=== PATIENT | female | born 1990 | race Two or more races ===

== ENCOUNTER 2016-11-29 06:15 | Inpatient (IN) | payer BC ==
[~2016-11-29] VITALS: Ht 152.4 cm; Wt 81.8 kg
[~2016-11-29 06:15] MED LIST: ACET325T14 PO; DOCU100T3 PO; IBUP-1222 PO; OXYC-302 PO; PREN1TAB27 PO
[2016-11-29] MEDS: LACTATED RINGERS 1,000 ML IV SCH ×3 (06:42→13:23)
[2016-11-29] MEDS ORDERED: OXYTOCIN 30U/ 0.9% NaCL 500ML 500 ML IV ONE (06:50)
[2016-11-29] MEDS: D5%-LACTATED RINGERS 1,000 ML IV SCH ×2 (06:50→14:50)
[2016-11-29] MEDS ORDERED: FENTANYL PF 100 MCG/2ML IVPush PRN (07:00)
[2016-11-29] MEDS ORDERED: ONDANSETRON 2MG/ML, 2ML IVPush PRN (07:00)
[2016-11-29] MEDS ORDERED: FENTANYL PF 100 MCG/2ML IV PRN (07:00)
[2016-11-29] MEDS ORDERED: TERBUTALINE 1 MG/ML, 1ML IVPush PRN ×2 (07:00)
[2016-11-29] MEDS ORDERED: CALCIUM CARBONATE 500 MG TAB.CHEW PO PRN ×2 (07:00→16:30)
[2016-11-29] MEDS ORDERED: TERBUTALINE 1 MG/ML, 1ML SQ PRN (07:00)
[2016-11-29 07:01] VITALS: BP 131/76
[2016-11-29] MEDS ORDERED: MISOPROSTOL 25 MCG TABLET ONE ×2 (07:01→11:37)
[2016-11-29] MEDS ORDERED: NEWBORN KIT ONE (07:02)
[2016-11-29] MEDS ORDERED: OXYTOCIN 30U/ 0.9% NaCL 500ML 500 ML ONE (07:02)
[2016-11-29 07:17] VITALS: BP 131/76
[2016-11-29] MEDS: MISOPROSTOL 25 MCG TABLET VG PRN ×2 (07:37→12:00)
[2016-11-29] MEDS ORDERED: MISOPROSTOL 200 MCG TABLET ONE (08:48)
[2016-11-29] MEDS ORDERED: LIDOCAINE 1%, 20ML ONE (08:48)
[2016-11-29] MEDS ORDERED: FENTANYL/BUPIV./NS/PF 250 ML EPIDCONT ONE (14:05)
[2016-11-29] MEDS ORDERED: BUPIVACAINE/PF 0.25% ONE (14:06)
[2016-11-29] MEDS ORDERED: FENTANYL/BUPIV./NS/PF 250 ML EPIDCONT SCH (14:47)
[2016-11-29] MEDS ORDERED: LACTATED RINGERS 1,000 ML IV SCH (14:47)
[2016-11-29] MEDS ORDERED: NALOXONE 0.4 MG/ML, 1ML IVPush PRN (15:00)
[2016-11-29] MEDS ORDERED: EPHEDRINE 50 MG/ML, 1ML IVPush PRN (15:00)
[2016-11-29] MEDS ORDERED: LACTATED RINGERS 1,000 ML IVBOLUS PRN (15:00)
[2016-11-29] MEDS: OXYTOCIN 30U/ 0.9% NaCL 500ML 500 ML IV SCH (16:03)
[2016-11-29] MEDS ORDERED: MISOPROSTOL 200 MCG TABLET PR PRN (16:30)
[2016-11-29] MEDS ORDERED: HYDROcodone/APAP 5/325 TABLET PO PRN (16:30)
[2016-11-29] MEDS ORDERED: ONDANSETRON 2MG/ML, 2ML IV PRN (16:30)
[2016-11-29 18:40] VITALS: BP 125/71
[2016-11-29] MEDS: IBUPROFEN 600 MG TABLET PO PRN (19:27)
[2016-11-29] MEDS: HYDROcodone/APAP 5/325 TABLET PO PRN (21:27)
[2016-11-30 01:17] VITALS: BP 123/78
[2016-11-30] MEDS: HYDROcodone/APAP 5/325 TABLET PO PRN ×4 (01:31→19:15)
[2016-11-30] MEDS: IBUPROFEN 600 MG TABLET PO PRN ×4 (01:31→20:44)
[2016-11-30] MEDS: OXYTOCIN 30U/ 0.9% NaCL 500ML 500 ML IV SCH ×2 (02:03→03:20)
[2016-11-30 04:29] VITALS: BP 117/72
[2016-11-30 07:25] VITALS: BP 135/79
[2016-11-30] MEDS: PRENATAL VIT/IRON/FA 1 EACH TABLET PO SCH (07:47)
[2016-11-30] MEDS: DOCUSATE 100 MG CAPSULE PO PRN ×2 (07:47→20:44)
[2016-11-30 20:30] VITALS: BP 127/71
[2016-12-01 07:20] VITALS: BP 115/73
[2016-12-01] MEDS: PRENATAL VIT/IRON/FA 1 EACH TABLET PO SCH (08:00)
[2016-12-01] MEDS: IBUPROFEN 600 MG TABLET PO PRN ×2 (08:00→13:44)
[2016-12-01] MEDS: DOCUSATE 100 MG CAPSULE PO PRN (08:00)
[2016-12-01] MEDS ORDERED: PRENATAL VIT/IRON/FA 1 EACH TABLET PO SCH (09:00)
[2016-12-01] MEDS ORDERED: IBUP800T PO (12:12)
[2016-12-01] MEDS ORDERED: HYDR-3240 PO (12:13)
[2016-12-01] MEDS: HYDROcodone/APAP 5/325 TABLET PO PRN (13:44)
== END 2016-12-01 14:17 | disposition home or self-care (01) | DRG 775 ==
LOC: LDIP 06:15 → 2NW 18:23
PROVIDERS: ADMIT Obstetrics & Gynecology; ATTEND Obstetrics & Gynecology
PROC: 10E0XZZ Delivery of Products of Conception, External Approach (ICD-10-PCS; principal; 2016-11-29)
PROC: 10907ZC Drainage of Amniotic Fluid, Therapeutic from Products of Conception, Via Natural or Artificial Opening (ICD-10-PCS; 2016-11-29)
PROC: 00HU33Z Insertion of Infusion Device into Spinal Canal, Percutaneous Approach (ICD-10-PCS; 2016-11-29)
PROC: 3E0R3CZ (ICD-10-PCS; 2016-11-29)
PROC: 3E0P7GC Introduction of Other Therapeutic Substance into Female Reproductive, Via Natural or Artificial Opening (ICD-10-PCS; 2016-11-29)
DX: O36.5930 Maternal care for other known or suspected poor fetal growth, third trimester, not applicable or unspecified (principal); O41.03X0 Oligohydramnios, third trimester, not applicable or unspecified; Z37.0 Single live birth; Z3A.39 39 weeks gestation of pregnancy
CPT/HCPCS: 36415; 85025; 86850; 86900; J2590; J3010; J7120

== ENCOUNTER 2018-11-20 12:46 | Inpatient (IN) | payer BC ==
[~2018-11-20] VITALS: Ht 152.4 cm; Wt 85.5 kg
[~2018-11-20 12:46] MED LIST changes: +HYDR-3240 PO; +IBUP-1223 PO
[2018-11-20] MEDS ORDERED: NEWBORN KIT ONE (13:10)
[2018-11-20] MEDS ORDERED: OXYTOCIN 30U/ 0.9% NaCL 500ML 500 ML ONE ×2 (13:10→18:17)
[2018-11-20] MEDS ORDERED: D5%-LACTATED RINGERS 1,000 ML IV SCH (13:16)
[2018-11-20] MEDS ORDERED: OXYTOCIN 30U/ 0.9% NaCL 500ML 500 ML IV PRN (13:16)
[2018-11-20] MEDS ORDERED: OXYTOCIN 30U/ 0.9% NaCL 500ML 500 ML IV ONE (13:16)
[2018-11-20] MEDS ORDERED: FENTANYL PF 100 MCG/2ML IVPush PRN (13:30)
[2018-11-20] MEDS ORDERED: SODIUM CITRATE/CITRIC ACID 15 ML UDC PO PRN (13:30)
[2018-11-20] MEDS ORDERED: FENTANYL PF 100 MCG/2ML IV PRN (13:30)
[2018-11-20] MEDS ORDERED: METOCLOPRAMIDE 5 MG/ML, 2ML IVPush PRN (13:30)
[2018-11-20] MEDS ORDERED: CALCIUM CARBONATE 500 MG TAB.CHEW PO PRN (13:30)
[2018-11-20] MEDS ORDERED: TERBUTALINE 1 MG/ML, 1ML IVPush PRN (13:30)
[2018-11-20] MEDS ORDERED: ONDANSETRON 2MG/ML, 2ML IVPush PRN (13:30)
[2018-11-20] MEDS: PLEASE ENTER HEIGHT AND WEIGHT MC SCH ×2 (13:39→21:39)
[2018-11-20] MEDS: LACTATED RINGERS 1,000 ML IV SCH ×6 (13:55→22:54)
[2018-11-20 14:32] VITALS: BP 122/81
[2018-11-20 14:39] LABS: MEAN CORPUSCULAR HEMOGLOBIN 27.7 pg (27.0-34.8); MEAN CORPUSCULAR HGB CONC 32.5 g/dL (32.4-35.8); MEAN CORPUSCULAR VOLUME 85.1 fL (80-100); MEAN PLATELET VOLUME 11.1 fL (7.4-10.4); PLATELET COUNT 182 x10^3/uL (130-400); RED BLOOD COUNT 5.09 x10^6/uL (3.82-5.3); RED CELL DISTRIBUTION WIDTH 14.9 % (9.6-15.2)
[2018-11-20 14:40] LABS: BASOPHILS # (AUTO) 0.01 x10^3/uL (0-0.1); BASOPHILS % (AUTO) 0 % (0-1); EOSINOPHILS # (AUTO) 0.01 x10^3/uL (0-0.4); EOSINOPHILS % (AUTO) 0 % (1-7); LYMPHOCYTES # (AUTO) 1.34 x10^3/uL (1-3.4); LYMPHOCYTES % (AUTO) 18 % (22-44); MD SCAN; MONOCYTES # (AUTO) 0.51 x10^3/uL (0.2-0.8); MONOCYTES % (AUTO) 7 % (2-9); NEUTROPHILS # (AUTO) 5.75 x10^3/uL (1.8-6.8); NEUTROPHILS % (AUTO) 76 % (42-75)
[2018-11-20] MEDS ORDERED: FENTANYL/BUPIV./NS/PF 250 ML EPIDCONT SCH ×2 (14:47→14:54)
[2018-11-20] MEDS ORDERED: BUPIVACAINE 0.25% ONE ×2 (14:58→15:38)
[2018-11-20] MEDS ORDERED: EPHEDRINE 50 MG/ML, 1ML IVPush PRN ×2 (15:00)
[2018-11-20] MEDS ORDERED: LACTATED RINGERS 1,000 ML IVBOLUS PRN ×2 (15:00)
[2018-11-20] MEDS ORDERED: FENTANYL PF 500 MCG, BUPIVACAINE/PF 0.5%, 30ML 62.5 ML in SODIUM CHLORIDE 0.9% 177.5 ML EPIDCONT SCH (15:00)
[2018-11-20] MEDS ORDERED: NALOXONE 0.4 MG/ML, 1ML IVPush PRN (15:00)
[2018-11-20] MEDS ORDERED: FENTANYL/BUPIV./NS/PF 250 ML EPIDCONT ONE (15:38)
[2018-11-20] MEDS ORDERED: ONDANSETRON 2MG/ML, 2ML IV PRN (17:30)
[2018-11-20] MEDS ORDERED: OXYcodone/APAP 5/325MG TABLET PO PRN (17:30)
[2018-11-20] MEDS ORDERED: METHYLERGONOVINE 0.2 MG/ML IM PRN (17:30)
[2018-11-20] MEDS ORDERED: MISOPROSTOL 200 MCG TABLET PR PRN (17:30)
[2018-11-20] MEDS ORDERED: ACETAMINOPHEN 325 MG TABLET PO PRN (17:30)
[2018-11-20] MEDS ORDERED: OXYTOCIN 10 UNITS/ML, 1ML IM PRN (17:30)
[2018-11-20] MEDS: OXYTOCIN 30U/ 0.9% NaCL 500ML 500 ML IV SCH (18:22)
[2018-11-20 19:50] VITALS: BP 129/83
[2018-11-20] MEDS: IBUPROFEN 600 MG TABLET PO PRN (21:25)
[2018-11-21] VITALS: BP 116/69
[2018-11-21 00:56] LABS: BASOPHILS # (AUTO) 0.03 x10^3/uL (0-0.1); BASOPHILS % (AUTO) 0 % (0-1); EOSINOPHILS # (AUTO) 0.01 x10^3/uL (0-0.4); EOSINOPHILS % (AUTO) 0 % (1-7); LYMPHOCYTES # (AUTO) 1.65 x10^3/uL (1-3.4); LYMPHOCYTES % (AUTO) 16 % (22-44); MD NO; MEAN CORPUSCULAR HEMOGLOBIN 27.9 pg (27.0-34.8); MEAN CORPUSCULAR HGB CONC 32.4 g/dL (32.4-35.8); MEAN CORPUSCULAR VOLUME 86.1 fL (80-100); MEAN PLATELET VOLUME 11.4 fL (7.4-10.4); MONOCYTES # (AUTO) 0.58 x10^3/uL (0.2-0.8); MONOCYTES % (AUTO) 6 % (2-9); NEUTROPHILS # (AUTO) 8.14 x10^3/uL (1.8-6.8); NEUTROPHILS % (AUTO) 78 % (42-75); PLATELET COUNT 164 x10^3/uL (130-400); RED BLOOD COUNT 4.41 x10^6/uL (3.82-5.3); RED CELL DISTRIBUTION WIDTH 15.1 % (9.6-15.2)
[2018-11-21] MEDS: OXYcodone/APAP 5/325MG TABLET PO PRN ×5 (01:06→19:11)
[2018-11-21] MEDS: OXYTOCIN 30U/ 0.9% NaCL 500ML 500 ML IV SCH ×3 (03:12→23:12)
[2018-11-21 04:30] VITALS: BP 131/75
[2018-11-21] MEDS: IBUPROFEN 600 MG TABLET PO PRN ×3 (05:33→19:11)
[2018-11-21] MEDS: LACTATED RINGERS 1,000 ML IV SCH (06:54)
[2018-11-21 07:57] VITALS: BP 127/81
[2018-11-21] MEDS: PRENATAL VIT/IRON/FA 1 EACH TABLET PO SCH (08:29)
[2018-11-21] MEDS: DOCUSATE 100 MG CAPSULE PO PRN ×2 (09:38→19:11)
[2018-11-21 12:15] VITALS: BP 129/81
[2018-11-21] MEDS ORDERED: D5%-LACTATED RINGERS 1,000 ML IV SCH (13:16)
[2018-11-21 19:05] VITALS: BP 126/77
[2018-11-22] MEDS: IBUPROFEN 600 MG TABLET PO PRN ×2 (02:45→09:14)
[2018-11-22] MEDS: OXYcodone/APAP 5/325MG TABLET PO PRN ×2 (02:45→09:14)
[2018-11-22 07:45] VITALS: BP 102/61
[2018-11-22] MEDS: OXYTOCIN 30U/ 0.9% NaCL 500ML 500 ML IV SCH (09:12)
[2018-11-22] MEDS: DOCUSATE 100 MG CAPSULE PO PRN (09:14)
[2018-11-22] MEDS: PRENATAL VIT/IRON/FA 1 EACH TABLET PO SCH (09:16)
[2018-11-22] MEDS ORDERED: IBUP-1222 PO (11:28)
[2018-11-22 17:03] VITALS: BP 145/84
== END 2018-11-22 17:22 | disposition home or self-care (01) | DRG 807 ==
LOC: LDIP 12:46 → 2NW 19:29
PROVIDERS: ADMIT Obstetrics & Gynecology; ATTEND Obstetrics & Gynecology
PROC: 10E0XZZ Delivery of Products of Conception, External Approach (ICD-10-PCS; principal; 2018-11-20)
PROC: 3E0R3BZ Introduction of Anesthetic Agent into Spinal Canal, Percutaneous Approach (ICD-10-PCS; 2018-11-20)
PROC: 00HU33Z Insertion of Infusion Device into Spinal Canal, Percutaneous Approach (ICD-10-PCS; 2018-11-20)
DX: O42.92 Full-term premature rupture of membranes, unspecified as to length of time between rupture and onset of labor (principal); Z37.0 Single live birth; O24.429 Gestational diabetes mellitus in childbirth, unspecified control; Z3A.38 38 weeks gestation of pregnancy
CPT/HCPCS: 36415; J7121; 82962; 85025; 86850; 86900; G0378; J3490; J2590; J3010; J7120